=== PATIENT | female | born 1990 | race Hispanic/Latino ===

== ENCOUNTER 2019-10-28 02:46 | Observation (INO) | payer OTHER ==
[~2019-10-28] VITALS: Ht 160 cm; Wt 98.4 kg
[2019-10-28 03:13] LABS: APPEARANCE,URINE Cloudy (CLEAR); BILIRUBIN,URINE Small (NEGATIVE); COLOR,URINE Dark Yellow (YELLOW); GLUCOSE, URINE (UA) TRACE mg/dL (NEGATIVE); KETONES,URINE >=160 mg/dL (NEGATIVE); LEUKOCYTE ESTERASE ,URINE Trace (NEGATIVE); NITRATE,URINE Negative (NEGATIVE); OCCULT BLOOD,URINE Negative (NEGATIVE); PH,URINE 5.5 (5.0-8.0); PROTEIN,URINE POS 2+ mg/dL (NEGATIVE)
[2019-10-28] MEDS ORDERED: SODIUM CHLORIDE 0.9% 1000ML 1,000 ML IV ONE ×2 (03:24→05:50)
[2019-10-28] MEDS ORDERED: SODIUM CHLORIDE 0.9% 100 ML IV ONE (03:29)
[2019-10-28 03:31] LABS: BASOPHILS % (AUTO) 0.4 % (0.0-5.0); EOSINOPHILS % (AUTO) 0.1 % (0.0-8.0); HEMATOCRIT 40.5 % (36-48); LYMPHOCYTES % (AUTO) 3.2 % (21.0-51.0); MEAN CORPUSCULAR HEMOGLOBIN 29.9 pg (27.0-33.0); MEAN CORPUSCULAR HGB CONC 33.7 g/dL (32.0-36.0); MEAN CORPUSCULAR VOLUME 88.7 fL (79-99); NEUTROPHILS % (AUTO) 94.3 % (40.0-77.0); PLATELET COUNT (AUTO) 209 K/uL (130-400); RED BLOOD CELL COUNT(AUTO) 4.56 MIL/uL (4.00-5.50); RED CELL DISTRIBUTION WIDTH 14.2 % (11.0-15.5); WHITE BLOOD COUNT (AUTO) 13.4 K/uL (4.8-10.8)
[2019-10-28 03:34] LABS: BACTERIA,URINE Few /HPF (None Seen); RBC,URINE 0-1 /HPF (0-1); WBC,URINE 0-1 /HPF (0-1)
[2019-10-28] MEDS ORDERED: MORPHINE SULFATE 2 MG/ML 1ML SYG ONE (03:34)
[2019-10-28 03:41] LABS: CREATININE 0.7 mg/dL (0.5-1.5); POTASSIUM 3.7 mmol/L (3.5-5.1)
[2019-10-28 03:46] LABS: ALBUMIN 3.5 g/dL (3.5-5.0); BILIRUBIN,DIRECT 0.2 mg/dL (0.0-0.3); BILIRUBIN,TOTAL 0.8 mg/dL (0.2-1.0)
[2019-10-28] MEDS ORDERED: ONDANSETRON HCL 4 MG/2 ML VIAL ONE (05:51)
[2019-10-28 06:26] LABS: OCCULT BLOOD STOOL SINGLE ONLY POSITIVE (NEGATIVE)
[2019-10-28] MEDS ORDERED: ONDANSETRON HCL 4 MG/2 ML VIAL IVP PRN ×2 (08:00→09:45)
[2019-10-28 09:38] VITALS: BP 115/62
[2019-10-28] MEDS ORDERED: DEXTROSE 5 %-0.45 % NACL 1,000 ML IV SCH (09:45)
[2019-10-28] MEDS ORDERED: PREN-154 PO (10:05)
[2019-10-28] MEDS: DEXTROSE 5 %-0.45 % NACL 1,000 ML IV SCH ×2 (10:25→17:40)
[2019-10-28 11:18] VITALS: BP 111/61
[2019-10-28 15:36] VITALS: BP 110/59
--- NOTE | 2019-10-28 17:50 | NUR ---
PHYSICIAN ROUNDING DR. BRENDEN PATRICK AT BEDSIDE TO ASSESS PT AND DISCUSS POC. PT IN AGREEMENT. NO NEW ORDERS RECEIVED AT THIS TIME.
[2019-10-28 19:26] VITALS: BP 109/65
--- NOTE | 2019-10-28 19:40 | NUR ---
Patient: Patient received sitting in bed with visitors around her with IV of D5 1/2 NS at 125 ml/hour. She claimed," I have diarrhea loose stools 2 timed in an hour. " Plan of care discussed with patient verbalizes understanding.
[2019-10-28 23:26] VITALS: BP 95/60
[2019-10-29] MEDS: DEXTROSE 5 %-0.45 % NACL 1,000 ML IV SCH (01:47)
[2019-10-29 04:10] VITALS: BP 91/52
[2019-10-29 07:35] VITALS: BP 92/54
--- NOTE | 2019-10-29 08:30 | NUR ---
PHYSICIAN ROUNDING DR. BRENDEN PATRICK AT BEDSIDE TO ASSESS AND TALK TO PT. NEW ORDERS RECEIVED FOR DISCHARGE.
--- NOTE | 2019-10-29 10:32 | NUR ---
DISCHARGE TEACHING PATIENT GIVEN DISCHARGE INSTRUCTIONS. PATIENT VERBALIZED UNDERSTANDING. PATIENT STATED SHE DID NOT HAVE ANY PAIN AT THIS TIME. PATIENT INSTRUCTED TO KEEP APT WITH DR. PATRICK NEXT WEEK. PATIENT INSTRUCTED ON OTC MEDICATION DR. PATRICK RECOMMENDED.
--- NOTE | 2019-10-29 10:40 | NUR ---
DISCHARGE PATIENT TAKEN VIA WHEELCHAIR TO MAIN LOBBY. PATIENT STATED NO PAIN OR DISCOMFORT AT THIS TIME. PATIENT ASSISTED INTO PRIVATE VEHICLE.
== END 2019-10-29 10:40 | disposition home or self-care (01) ==
LOC: EDH 02:46 → EDHIP 07:37 → WSH 09:25
PROVIDERS: ADMIT Obstetrics & Gynecology; ATTEND Obstetrics & Gynecology
DX: O21.0 Mild hyperemesis gravidarum (principal); R19.7 Diarrhea, unspecified; O34.219 Maternal care for unspecified type scar from previous cesarean delivery; O99.612 Diseases of the digestive system complicating pregnancy, second trimester; K92.89 Other specified diseases of the digestive system; O26.892 Other specified pregnancy related conditions, second trimester; O99.89 Other specified diseases and conditions complicating pregnancy, childbirth and the puerperium; Z90.49 Acquired absence of other specified parts of digestive tract; Z3A.15 15 weeks gestation of pregnancy
CPT/HCPCS: 36415; 80048; 80076; 81001; 82270; 85025; 87046; 87324; 96360; 96361 ×2; 99284; G0378 ×25; J2405; J7030 ×2

== ENCOUNTER 2021-06-01 17:34 | Emergency (ER) | payer MEDICAID, OTHER ==
[~2021-06-01] VITALS: Ht 160 cm; Wt 93.4 kg
[~2021-06-01 17:34] MED LIST: PREN-154 PO
[2021-06-01 18:04] VITALS: BP 137/66
[2021-06-01] MEDS ORDERED: SOLU-MEDROL 125MG VIAL IM ONE (18:30)
[2021-06-01] MEDS ORDERED: HYDROXYZINE 25 MG TABLET PO ONE (18:30)
[2021-06-01] MEDS ORDERED: HYD25 PO (18:46)
[2021-06-01] MEDS ORDERED: METH4TAB3 PO (18:46)
[2021-06-01 19:05] VITALS: BP 132/68
== END 2021-06-01 19:12 | disposition home or self-care (01) ==
LOC: EDH 17:34
DX: T78.40XA Allergy, unspecified, initial encounter (principal); R21 Rash and other nonspecific skin eruption; L29.9 Pruritus, unspecified; Z98.890 Other specified postprocedural states; X58.XXXA Exposure to other specified factors, initial encounter
CPT/HCPCS: 96372; 99283; J2930

== ENCOUNTER 2021-10-10 02:00 | Emergency (ER) | payer MEDICAID ==
[~2021-10-10] VITALS: Ht 160 cm; Wt 97.5 kg
[~2021-10-10 02:00] MED LIST changes: +HYD25 PO; +METH4TAB3 PO
[2021-10-10 02:17] LABS: APPEARANCE,URINE Clear (CLEAR); BILIRUBIN,URINE Negative (NEGATIVE); COLOR,URINE Yellow (YELLOW); GLUCOSE, URINE (UA) Negative (NEGATIVE); KETONES,URINE Negative (NEGATIVE); LEUKOCYTE ESTERASE ,URINE Negative (NEGATIVE); NITRATE,URINE Negative (NEGATIVE); OCCULT BLOOD,URINE Large (NEGATIVE); PROTEIN,URINE Negative (NEGATIVE); UROBILINOGEN,URINE 0.2 mg/dL (0.2-1.0)
[2021-10-10 02:19] LABS: HCG,QUAL RESULT NEGATIVE (NEGATIVE)
[2021-10-10] MEDS ORDERED: MORPHINE 2 MG SYG IVP ONE (02:30)
[2021-10-10] MEDS ORDERED: ONDANSETRON 4MG INJ IVP ONE (02:30)
[2021-10-10] MEDS ORDERED: 0.9%NACL 1000ML 1,000 ML IV ONE ×2 (02:30→03:58)
[2021-10-10 02:43] LABS: BASOPHILS % (AUTO) 0.1 % (0.0-5.0); EOSINOPHILS % (AUTO) 0.3 % (0.0-8.0); LYMPHOCYTES % (AUTO) 18.3 % (21.0-51.0); MEAN CORPUSCULAR HEMOGLOBIN 29.2 pg (27.0-33.0); MEAN CORPUSCULAR HGB CONC 34.1 g/dL (32.0-36.0); MEAN CORPUSCULAR VOLUME 85.7 fL (79-99); MONOCYTES % (AUTO) 5.8 % (3.0-13.0); NEUTROPHILS % (AUTO) 75.2 % (40.0-77.0); PLATELET COUNT (AUTO) 227 K/uL (130-400); RED BLOOD CELL COUNT(AUTO) 4.55 MIL/uL (4.00-5.50); RED CELL DISTRIBUTION WIDTH 12.1 % (11.0-15.5)
[2021-10-10 02:54] LABS: CREATININE 0.7 mg/dL (0.5-1.5); POTASSIUM 3.9 mmol/L (3.5-5.1)
[2021-10-10 03:00] LABS: ALBUMIN 4.1 g/dL (3.5-5.0); BILIRUBIN,TOTAL 0.9 mg/dL (0.2-1.0); TOTAL PROTEIN, SERUM 7.9 g/dL (6.0-8.3)
[2021-10-10 03:05] LABS: BACTERIA,URINE Rare /HPF (None Seen); WBC,URINE 0-1 /HPF (0-1)
[2021-10-10 03:06] LABS: MUCUS,URINE Few LPF (None Seen); SQUAMOUS EPITHELIAL CELL,UR 0-2 /HPF (0-2)
[2021-10-10] MEDS ORDERED: IOHEXOL 350 MG/ML 100ML INFUS..BTL IV ONE (03:20)
[2021-10-10] MEDS ORDERED: METOCLOPRAMIDE 10 MG/2 ML VIAL ONE (03:57)
[2021-10-10] MEDS ORDERED: MORPHINE 4 MG SYG ONE (03:58)
[2021-10-10] MEDS ORDERED: MORPHINE 4 MG SYG IV ONE (04:00)
[2021-10-10 04:14] VITALS: BP 124/70
[2021-10-10] MEDS ORDERED: CEPH500B PO (04:27)
[2021-10-10] MEDS ORDERED: DICY20TA2 PO (04:27)
[2021-10-10] MEDS ORDERED: MELO7.5T12 PO (04:27)
[2021-10-10] MEDS ORDERED: CEFTRIAXONE 1G VIAL IVP ONE (04:30)
== END 2021-10-10 04:51 | disposition home or self-care (01) ==
LOC: EDH 02:00
DX: N39.0 Urinary tract infection, site not specified (principal); Z79.1 Long term (current) use of non-steroidal anti-inflammatories (NSAID); Z79.52 Long term (current) use of systemic steroids; Z79.899 Other long term (current) drug therapy; Z90.49 Acquired absence of other specified parts of digestive tract
CPT/HCPCS: 36415; 74177; 80053; 81001; 81025; 83690; 85025; 96361; 96374; 96375; 96376; 99285; J0696; J2270; J2405; J2765; J7030 ×2; Q9967